=== PATIENT | female | born 2000 | race Caucasian/White ===

== ENCOUNTER 2021-08-14 13:45 | Emergency (ER) | payer BC ==
[2021-08-14] MEDS ORDERED: Sodium Chloride 0.9% 1,000 ML IV ONE (14:10)
--- NOTE | 2021-08-14 14:16 | EDM.PDOC ---
ED HPI GENERAL MEDICAL PROBLEM - General Chief Complaint: Fever Stated Complaint: FEVER Time Seen by Provider: 08/14/21 14:00 Source of Information: Reports: Patient History Limitations: Reports: No Limitations - History of Present Illness INITIAL COMMENTS - FREE TEXT/NARRATIVE: States fever since . Has recently been prescribed famotidine, pantoprazole, ondansetron by GI. States not helpful, still having n/v and loose stool. Denies , has IUD. Unvaccinated against flu and COVID. States having trouble eating and drinking due to nausea and discomfort. Reports unintentional weight loss since November of around 15 pounds or so, and most of that has been lost in the past couple of months. Onset: Gradual Onset Date: 08/09/21 Duration: Intermittent Location: Reports: Abdomen Quality: Reports: Ache Improves with: Reports: None Worsens with: Reports: Eating Associated Symptoms: Reports: Loss of Appetite, Nausea/Vomiting Treatments CONDUCTOR/BRAKEMAN: Reports: Other Medication(s) (famotidine, pantoprazole, ondansetron) - Related Data Allergies Allergy/AdvReac Type Severity Reaction Status Date / Time amoxicillin Allergy Cannot Verified 08/14/21 14:06 Remember Home Meds: Home Meds Famotidine 40 mg PO BEDTIME 08/14/21 [History] Ondansetron [Zofran ODT] 4 mg PO Q6H PRN 08/14/21 [History] Pantoprazole [ProTONIX] 40 mg PO BID 08/14/21 [History] Past Medical History - Infectious Disease History Infectious Disease History: Reports: Novel Coronavirus ED ROS ENT - Review of Systems Review Of Systems: Comprehensive ROS is negative, except as noted in HPI. ED EXAM, ENT - Physical Exam Exam: See Below Exam Limited By: No Limitations General Appearance: Alert, No Apparent Distress, Thin Eye Exam: Bilateral Eye: EOMI Ears: Normal External Exam, Hearing Grossly Normal Nose: No Blood Mouth/Throat: Normal Inspection, Normal Lips Head: Atraumatic, Normocephalic Neck: Normal Inspection, Supple, Non-Tender, Full Range of Motion Respiratory/Chest: No Respiratory Distress, Lungs Clear, Normal Breath Sounds, No Accessory Muscle Use, Chest Non-Tender Cardiovascular: Normal Peripheral Pulses, Regular Rate, Rhythm GI/Abdominal: Normal Bowel Sounds, Soft, Non-Tender, No Distention Back: Full Range of Motion Extremities: Normal Inspection, Normal Range of Motion, Non-Tender, Normal Capillary Refill Neurological: Alert, Oriented, Normal Cognition, No Motor/Sensory Deficits Psychiatric: Normal Affect, Normal Mood Skin: Warm, Dry, Intact, Normal Color, No Rash Lymphatic: No Adenopathy Course - Vital Signs Last Recorded V/S: Last Vital Signs Temp 99.1 F 08/14/21 13:53 Pulse 97 08/14/21 13:53 Resp 16 08/14/21 13:53 BP 120/78 08/14/21 13:53 Pulse Ox 98 08/14/21 13:53 - Orders/Labs/Meds Labs: Laboratory Tests 08/14/21 08/14/21 08/14/21 Range/Units 14:18 14:18 14:23 WBC 2.3 L (4.0-10.0) x10^3/uL RBC 4.61 (4.00-5.50) x10^6/uL Hgb 14.7 (12.0-16.0) g/dL Hct 42.3 (33.0-47.0) % MCV 91.8 (78.0-93.0) fL MCH 31.9 (26.0-32.0) pg MCHC 34.8 (32.0-36.0) g/dL RDW Coeff of Marcy 11.9 (10.0-15.0) % Plt Count 134 (130-400) x10^3/uL Immature Gran % (Auto) 0.00 (0.00-0.43) % Neut % (Auto) 40.9 L (50.0-80.0) % Lymph % (Auto) 42.1 (25.0-50.0) % [place] % (Auto) 16.2 H (2.0-11.0) % Eos % (Auto) 0.4 (0.0-4.0) % Baso % (Auto) 0.4 (0.2-1.2) % Neut # (Auto) 0.9 L (1.8-7.7) x10^3/uL Lymph # (Auto) 1.0 (1.0-4.8) x10^3/uL [place] # (Auto) 0.4 (0.0-0.8) x10^3/uL Eos # (Auto) 0.0 (0.0-0.5) x10^3/uL Baso # (Auto) 0.0 (0.0-0.2) x10^3/uL Immature Gran # (Auto) 0.00 (0.00-0.07) x10^3/uL Sodium 142 (136-145) mmol/L Potassium 3.7 (3.5-5.1) mmol/L Chloride 103 (98-107) mmol/L Carbon Dioxide 26 (21-32) mmol/L Anion Gap 16.7 H (5-15) mmol/L BUN 10 (7-18) mg/dL Creatinine 0.9 (0.55-1.02) mg/dL Est Cr Clr Drug Dosing TNP Estimated GFR (MDRD) > 60 Glucose 82 (70-99) mg/dL Calcium 9.2 (8.5-10.1) mg/dL Corrected Calcium 8.9 (8.5-10.1) mg/dL Magnesium 2.3 (1.8-2.4) mg/dL Total Bilirubin 0.5 (0.2-1.0) mg/dL AST 19 (15-37) U/L ALT 15 (14-59) U/L Alkaline Phosphatase 74 (46-116) U/L Total Protein 8.1 (6.4-8.2) g/dL Albumin 4.4 (3.4-5.0) g/dL Globulin 3.7 Albumin/Globulin Ratio 1.19 Amylase 53 (25-115) U/L Lipase 83 (73-393) U/L Influenza Type A RNA Positive H (NEGATIVE) RSV RNA (INAAT) Negative (NEGATIVE) Influenza Type B RNA Negative (NEGATIVE) SARS-CoV-2 RNA (SOFIA) Negative (NEGATIVE) Meds: Medications Discontinued Medications Generic Name Dose Route Start Last Admin Trade Name Freq PRN Reason Stop Dose Admin Al Hydroxide/Mg Hydroxide 30 ml 08/14/21 14:43 08/14/21 14:51 Gi Cocktail Oral Solution 30 Ml PO 08/14/21 14:44 30 ml ONETIME ONE Administration Sodium Chloride 1,000 mls @ 999 mls/hr 08/14/21 14:10 08/14/21 14:22 Normal Saline IV 08/14/21 15:10 999 mls/hr ONETIME ONE Administration Sodium Chloride 500 mls @ 999 mls/hr 08/14/21 15:12 08/14/21 15:15 Normal Saline IV 08/14/21 15:42 999 mls/hr ONETIME ONE Administration - Re-Assessments/Exams Free Text/Narrative Re-Assessment/Exam: 08/14/21 15:18 White count is low. Influenza A positive. Pt informed. States IV fluids have made her feel significantly better. Will give another 500ml to her. Departure - Departure Time of Disposition: 15:55 Disposition: Home, Self-Care 01 Condition: Good Clinical Impression: Influenza A Leukopenia Qualifiers: Leukopenia type: unspecified Qualified Code(s): D72.819 - Decreased white blood cell count, unspecified - Discharge Information Instructions: Influenza, Adult, [id number], Leukopenia Referrals: Maria Del Carmen Fletcher DO [Primary Care Provider] - Forms: ED Department Discharge Additional Instructions: Rest, lots of fluids such as sports drinks, soup, etc. Tylenol per label as needed. Follow up with your Primary Care Provider regarding your lab work, for possible recheck of CBC. Sepsis Event Note (ED) - Focused Exam Vital Signs: Vital Signs Temp Pulse Resp BP Pulse Ox 08/14/21 13:53 99.1 F 97 16 120/78 98 - Problem List & Annotations (1) Influenza A SNOMED Code(s): 844681099 Code(s): J10.1 - FLU DUE TO OTH IDENT INFLUENZA VIRUS W OTH RESP MANIFEST Status: Acute Current Visit: Yes (2) Leukopenia SNOMED Code(s): 63005005, 599958850 Code(s): D72.819 - DECREASED WHITE BLOOD CELL COUNT, UNSPECIFIED Status: Acute Current Visit: Yes (3) Leukopenia SNOMED Code(s): 13914199, 231489787 Code(s): D72.819 - DECREASED WHITE BLOOD CELL COUNT, UNSPECIFIED Status: Acute Current Visit: Yes - Problem List Review Problem List Initiated/Reviewed/Updated: Yes
[2021-08-14] MEDS ORDERED: GI Cocktail Oral Solution 30 ML PO ONE (14:43)
[2021-08-14 14:45] LABS: CHLORIDE,CL 103 mmol/L (98-107); SODIUM,NA 142 mmol/L (136-145)
[2021-08-14 14:46] LABS: ANION GAP 16.7 mmol/L (5-15)
[2021-08-14 15:05] LABS: CORONAVIRUS COVID-19 NAA NEGATIVE (NEGATIVE)
[2021-08-14 15:08] LABS: RESPIRATORY SYNCYTIAL VIR NAA NEGATIVE (NEGATIVE)
[2021-08-14] MEDS ORDERED: Sodium Chloride 0.9% 500 ML IV ONE (15:12)
== END 2021-08-14 16:05 | disposition home or self-care (01) ==
LOC: VM.ED 13:45
DX: J10.1 Influenza due to other identified influenza virus with other respiratory manifestations (principal); D72.819 Decreased white blood cell count, unspecified; Z20.822 Contact with and (suspected) exposure to COVID-19; Z88.0 Allergy status to penicillin
CPT/HCPCS: 0241U; 36415; 80053; 82150; 83690; 83735; 85025; 99284; A9270-GY; J7030